=== PATIENT | male | born 1955 ===

== ENCOUNTER 2020-03-15 06:01 | Day surgery (SDC) | payer MEDICARE ==
[~2020-03-15 06:01] MED LIST: ACETAMINOPHEN 500 MG TAB PO SCH; CELECOXIB 200 MG CAP PO NR; GABAPENTIN 300 MG CAP PO NR; LACTATED RINGERS 1,000 ML IV SCH; MIDAZOLAM 2 MG/2 ML INJ IV NR; SCOPOLAMINE TRANSDERMAL PATCH 72 HR TD NR; ceFAZolin/Water 2 GM/20 ML 2 GM/20 ML SYRINGE IV NR
[2020-03-15] MEDS ORDERED: BACTERIOSTATIC SODIUM CHLORIDE 0.9% 30 ML VIAL INFILTRATI ONE (06:15)
[2020-03-15] MEDS ORDERED: LIDOCAINE (1%) 10 MG/1 ML VIAL 20 ML MDV ONE (06:40)
[2020-03-15] MEDS ORDERED: BUPIVACAINE/PF (0.5%) 5 MG/1 ML 30 ML VIAL INFILTRATI ONE ×2 (06:41→08:27)
[2020-03-15] MEDS ORDERED: ROCURONIUM 50 MG/5 ML INJ IV ONE (07:22)
[2020-03-15] MEDS ORDERED: propofoL 200 MG/20 ML VIAL IV ONE (07:22)
[2020-03-15] MEDS ORDERED: fentaNYL 100 MCG/2 ML INJ ONE (07:22)
[2020-03-15] MEDS ORDERED: LIDOCAINE MPF (2%) 20 MG/1 ML VIAL 5 ML ONE (07:22)
--- NOTE | 2020-03-15 07:41 | Anesthesia Consultation ---
Anesthesia Consult and Med Hx Date of service: 03/15/20 - Airway Anesthetic Teeth Evaluation: Good ROM Head & Neck: Adequate Mental/Hyoid Distance: Adequate Mallampati Class: Class III Intubation Access Assessment: Possibly Difficult - Pulmonary Exam CTA: Yes - Cardiac Exam Cardiac Exam: RRR - Pre-Operative Health Status ASA Pre-Surgery Classification: ASA2 Proposed Anesthetic Plan: General - Pulmonary Hx Smoking: Yes (quit 25 yrs ago) Hx Asthma: Yes (used inhaler this morning per PAT instructions) Hx Respiratory Symptoms: Yes (occasional cough and post nasal drip; unchanged) Hx Sleep Apnea: No (CARMINE PRE SCREEN LOW RISK) - Cardiovascular System Hx Hypertension: No Hx Heart Attack/AMI: No - Central Nervous System CVA: No Hx Back Pain: No (NECK PAIN w/ occasional hand neuropathy) - Gastrointestinal Hx Gastroesophageal Reflux Disease: No - Endocrine Hx Renal Disease: No Hx Liver Disease: No Hx Insulin Dependent Diabetes: No Hx Non-Insulin Dependent Diabetes: No Hx Thyroid Disease: No - Other Systems Hx Alcohol Use: Yes (BEER 1 X W- [facility]-OCC.) Hx Obesity: No - Additional Comments Anesthesia Medical History Comments: No hx anesthetic complications.
[2020-03-15] MEDS ORDERED: HYDROmorphone 1 MG/1 ML INJ IV PRN (07:42)
--- NOTE | 2020-03-15 07:42 | Anesthesia Day of Surgery ---
Anesthesia Day of Surgery - Day of Surgery Patient Examined: Yes Patient H&P Reviewed: Yes Patient is NPO: Yes
[2020-03-15] MEDS ORDERED: ePHEDrine SULFATE 50 MG/1 ML INJ ONE (07:46)
[2020-03-15] MEDS ORDERED: LIDOCAINE (1%) 10 MG/1 ML VIAL 20 ML MDV INFILTRATI ONE (08:28)
[2020-03-15] MEDS ORDERED: WATER FOR IRRIG STERILE 1,500 ML BOTTLE IR ONE (08:28)
[2020-03-15] MEDS ORDERED: dexAMETHasone 20 MG/5 ML VIAL ONE (09:11)
[2020-03-15] MEDS ORDERED: ONDANSETRON 4 MG/2 ML INJ ONE (09:11)
[2020-03-15] MEDS ORDERED: GLYCOPYRROLATE 0.4 MG/2 ML INJ ONE (09:53)
[2020-03-15] MEDS ORDERED: NEOSTIGMINE 10MG/10 ML INJ MDV ONE (09:53)
[2020-03-15] MEDS ORDERED: LACTATED RINGERS 1,000 ML ONE (09:56)
[2020-03-15] MEDS ORDERED: HYDROcodone/ACETAMINOPHEN 5-325 MG TAB PO PRN (10:10)
--- NOTE | 2020-03-15 10:14 | Short Stay Summary ---
Short Stay Documentation Date of service: 03/15/20 - History Principal diagnosis: LEFT inguinal hernia, possible right H&P: obtained from office - Allergies and Medications Current Medications: Allergies No Known Allergies Allergy (Unverified 09/02/15 06:45) Home Medications Medication Instructions Recorded Confirmed Last Taken Type Albuterol Mdi (or & Nicu Only) 1 puff INHALATION PRN PRN 03/09/20 03/15/20 03/15/20 05:00 History [ProAir HFA Inhaler] Alendronate Sodium/Vitamin D3 25 mcg PO DAILY 03/09/20 03/09/20 03/14/20 History Atorvastatin 1 puff INHALATION PRN PRN 03/09/20 03/09/20 03/14/20 History Atorvastatin Calcium 40 mg PO DAILY 03/09/20 03/09/20 03/14/20 History Budesonide-Formoterol 160-4.5 160 mcg INHALATION DAILY 03/09/20 03/09/20 03/14/20 History Flonase 50 mcg INNOSTRIL PRN PRN 03/09/20 03/15/20 03/14/20 History Montelukast 10 mg PO DAILY 03/09/20 03/09/20 03/14/20 History Tamsulosin 0.4 mg PO DAILY 03/09/20 03/09/20 03/14/20 History Active Medications Acetaminophen (Acetaminophen 500 Mg Tab) 1,000 mg PO PREOP KADY Stop: 03/15/20 16:00 Last Admin: 03/15/20 06:50 Dose: 1,000 mg Documented by: Celecoxib (Celecoxib 200 Mg Cap) 200 mg PO PREOP NR Stop: 03/15/20 16:00 Last Admin: 03/15/20 06:50 Dose: 200 mg Documented by: Gabapentin (Gabapentin 300 Mg Cap) 300 mg PO PREOP NR Stop: 03/15/20 16:00 Last Admin: 03/15/20 06:50 Dose: 300 mg Documented by: Hydromorphone HCl (Hydromorphone 1 Mg/1 Ml Inj) 0.5 mg IV Q10MIN PRN PRN Reason: Pain , Severe (7-10) Stop: 03/15/20 23:00 Cefazolin Sodium (Ancef/Sterile Water 2 Gm/20 Ml) 2 gm in 20 mls @ 80 mls/hr IV PREOP NR Stop: 03/15/20 23:59 Lactated Ringer's (Lactated Ringers) 1,000 mls @ 100 mls/hr IV DIRECT KADY Stop: 03/15/20 23:59 Last Admin: 03/15/20 06:55 Dose: 100 mls/hr Documented by: Midazolam HCl (Midazolam 2 Mg/2 Ml Inj) 2 mg IV PREOP NR Stop: 03/15/20 23:00 Last Admin: 03/15/20 07:25 Dose: 2 mg Documented by: Scopolamine (Scopolamine Transdermal Patch 72 Hr) 1 each TD PREOP NR Stop: 03/15/20 23:00 Last Admin: 03/15/20 06:45 Dose: 1 each Documented by: - Brief post op/procedure progress note Date of procedure: 03/15/20 Pre-op diagnosis: left inguinal hernia, possible right Post-op diagnosis: other (bilateral inguinal hernias) Procedure: robotic assisted bilateral inguinal hernia repair with mesh Anesthesia: GETA, local, other (ilioinguinal nerve block b/l) Findings: bilateral indirect inguinal hernias with small associated cord lipomas Surgeon: YUNIOR YAÑEZ (Osiris Rose, [place], [facility] [facility] [place]) Estimated blood loss: minimal Pathology: none Condition: stable - Hospital course Hospital course: Pt observed in PACU and discharged to home in stable condition when criteria met - Disposition Condition at discharge: Good Disposition: DC-01 TO HOME OR SELFCARE Short Stay Discharge Plan Activity: other (NO HEAVY LIFTING OF GREATER THAN 10-15 LBS) Diet: regular Wound: open to air, per your surgeon's advice Additional Instructions: SEE PRINTED DISCHARGE INSTRUCTIONS Follow up with: SURYA RODRIGUEZ MD [Primary Care Provider] - 7 Days YUNIOR YAÑEZ DO [Staff Physician] - 14 Days Prescriptions: Celecoxib [celeBREX] 200 mg PO BID 3 Days #6 capsule Gabapentin 300 mg PO BID 3 Days #6 capsule HYDROcodone/APAP 5-325 [[place] 5-325 mg TAB] 1 each PO Q6H PRN #20 tablet PRN Reason: Pain , Severe (7-10)
[2020-03-15 12:23] VITALS: BP 132/69
--- NOTE | 2020-03-15 14:10 | Post Anesthesia Evaluation ---
- Post Anesthesia Evaluation Patient Participated: Yes Airway Patent: Yes Stable Respiratory Function: Yes Nausea/Vomiting: No Temp > 96.8F: Yes Pain Manageable: Yes Adequeate Hydration: Yes Anesthesia Complications: No
--- NOTE | 2020-03-15 16:48 | Operative Report ---
Operative Report Operative Report: Date of procedure: 03/15/20 Pre-op diagnosis: left inguinal hernia, possible right Post-op diagnosis: other (bilateral inguinal hernias) Procedure: Robotic assisted bilateral inguinal hernia repair with mesh Anesthesia: GETA, local, other (ilioinguinal nerve block b/l) Findings: bilateral indirect inguinal hernias with small cord lipomas Surgeon: YUNIOR YAÑEZ Blind Slat Stapling Machine Operator: BRITT Conrad Estimated blood loss: minimal Pathology: none Condition: stable Hospital course: Pt observed in PACU and discharged to home in stable condition when criteria met HPI and indication: 65-year-old male with a history of bilateral inguinal hernia repair, open as an infant who presented to the surgery clinic for evaluation of a painful bulge in the left groin. Patient was diagnosed with a reducible left inguinal hernia. He also had mild discomfort in the right groin however no obvious hernia was seen on exam. It was recommended that the patient undergo robotic assisted left inguinal hernia repair, with evaluation of the right inguinal region and possible repair of hernia if found. All risk, benefits, alternatives to surgery were discussed with patient and questions answered. Consent obtained. Procedure in detail: Patient was identified in the preoperative area, take back to operating room placed on operative table in supine position. After anesthesia was induced both arms were tucked and all bony prominences padded appropriately. A Mejia catheter was sterilely placed by the circulating nurse. The abdomen and left groin was then prepped and draped in usual sterile fashion a timeout performed. Local anesthetic was infiltrated to skin at the intended incision sites. A supraumbilical incision was made through which a Veress needle was inserted. Veress needle positioning was confirmed using saline drop test and the abdomen insufflated to 15 mmHg. Once the abdomen was insufflated, the Veress needle was removed and a 5 mm Optiview trocar was placed as incision. The abdomen is inspected there was no underlying injury to any of the abdominal structures. Patient was placed in Trendelenburg and the pelvis examined. There were bilateral inguinal hernias identified. At this point, an 8 mm right upper quadrant and left upper quadrant robotic trocars were then placed under direct visualization. The 5 mm supraumbilical trocar was removed and replaced with a 12 mm balloon trocar under direct visualization. A Ray-Francis was placed into the abdomen. The robot was then docked. A fenestrated bipolar was placed into arm #2 and a monopolar scissor in arm #1. The surgeon was then transferred to the console. I started by repairing the left inguinal hernia. First, I created a preperitoneal flap. The peritoneum was scored approximately 5 to 6 cm from the hernia defect. The peritoneum was then incised from the midline to the ASIS. The preperitoneal flap was then developed in an avascular plane. I first defined the medial margin by dissecting to the pubic tubercle. The pubic tubercle was cleared of overlying fatty tissue using blunt dissection. I then created the lateral margin in a similar fashion. Great care was taken to avoid injury to any nerves. I then started to reduce the hernia sac. The hernia sac was grasped and retracted laterally and cremasteric muscles were divided in a very careful fashion. During the dissection, the cord structures were identified and protected. The cord structures and vas deferens were visualized throughout the entire dissection. There was a small cord lipoma associated with the hernia sac which was reduced. Once the hernia sac was completely excised, the peritoneal flap was checked for hemostasis. Any additional cremasteric fibers that were were tenting up the peritoneum were divided. Hemostasis was carefully ensured. I then proceeded to repairing the right side. The dissection was carried out in a similar fashion to left side. A small cord lipoma along with indirect hernia sac were reduced. The pocket was checked for hemostasis which was ensured. I decided to repair the both hernias with a large 3D max mesh. The lateral aspect of the mesh was trimmed slightly. First the left sided mesh along with suture material was placed into the abdomen by the dental assistant. The mesh was positioned into the preperitoneal flap in the usual fashion. The medial portion of the mesh was sutured to Varun's ligament using an interrupted 2-0 Vicryl stitch. The lateral aspect of the mesh was sutured to the anterior lateral abdominal wall using a 2-0 Vicryl interrupted stitch. The mesh was seen to lay flat in the pocket with excellent coverage. The peritoneum was then reapproximated using 3-0 running V-Loc stitch. The entirety of the mesh was covered with peritoneum. Then the right sided mesh along with suture material was introduced into the abdomen by the dental assistant. This was positioned and sutured into place in the same way as the left side and peritoneum closed with running 3-0 vloc stitch. The robot was then undocked and the surgeon scrubbed back in. The remainder of the case was performed laparoscopically. All sharp materials along with a Ray-Francis were removed from the abdomen under direct visualization. The 12 mm port was removed and the fascia closed using a interrupted 0 Vicryl stitch with a XGear device. The abdomen was then slowly desufflated and the mesh was seen to lay flat in the preperitoneal space bilaterally. The remaining trocars were removed. Skin incisions were once again infiltrated with local anesthetic. Bilateral ilioinguinal nerve blocks were also performed with 5 cc of local anesthetic on each side. The skin incisions were approximated with 4-0 Monocryl subcuticular stitches and skin glue. At the end of the case all sponge, instrument, sharp counts were correct x2. Patient was awoken from anesthesia and Mejia catheter removed. Both testicles were palpated and in the scrotum in anatomic position. The patient was taken to PACU in stable condition.
== END 2020-03-15 06:02 | disposition home or self-care (01) ==
LOC: OR 06:01
PROVIDERS: ATTEND Surgery
DX: K40.20 Bilateral inguinal hernia, without obstruction or gangrene, not specified as recurrent (principal); Z20.828 Contact with and (suspected) exposure to other viral communicable diseases; E78.00 Pure hypercholesterolemia, unspecified; J45.909 Unspecified asthma, uncomplicated; M19.90 Unspecified osteoarthritis, unspecified site; Z79.899 Other long term (current) drug therapy; Z87.891 Personal history of nicotine dependence; Z72.89 Other problems related to lifestyle
CPT/HCPCS: 49650; C1781; J0690; J1100; J2250; J2405; J2704; J2710; J3010; J7120; U0003